=== PATIENT | female | born 1965 | race Caucasian/White ===

== ENCOUNTER → 2018-07-03 | Outpatient (CLI) | payer BC ==
[~2018-07-03] MED LIST: IOPAMIDOL (ISOVUE-300) 100 ML BTL ONE
== END ==
LOC: FIMAGING 09:11
PROVIDERS: ATTEND Family Medicine
DX: R59.0 Localized enlarged lymph nodes (principal); R63.4 Abnormal weight loss; R10.9 Unspecified abdominal pain; E78.2 Mixed hyperlipidemia; K76.9 Liver disease, unspecified; Z80.9 Family history of malignant neoplasm, unspecified
CPT/HCPCS: Q9967